=== PATIENT | female | born 1975 | race Caucasian/White ===

== ENCOUNTER 2021-04-19 15:11 | Emergency (ER) | payer OTHER, SELFPAY ==
[2021-04-19 15:13] VITALS: BP 129/91; PULSE 61; RESP 20; TEMP 36.3; O2SAT 99; BMI 41.0
--- NOTE | 2021-04-19 17:21 | HMH.EDUTC ---
[facility] Disposition Clinical Impression: Viral syndrome Disposition: Home, Self-Care Condition on Discharge: Good Instructions: DI for Viral Syndrome, Preventing the Spread of Coronavirus Discharge Instructions Additional Instructions: Drink plenty of fluids. Take tylenol or ibuprofen for pain or fever. Follow up with your regular doctor. GO TO THE ER FOR ANY WORSENING SYMPTOMS Quarantine until you know the results of your covid-19 test. If it is positive, the health department should call you and give you further instructions about your length of Quarantine and other things. Notify your school or workplace of your results and follow their instructions regarding return to work/school. Referrals: Josh Parmar MD [Primary Care Provider] - Time of Disposition: 17:25 Medical Decision Making - Medical Records Medical records reviewed: No: I reviewed the patient's medical records. - Bryan Inquiry Pt receiving controlled substance: No Vital Signs: 04/19/21 15:13 04/19/21 17:27 Temperature 97.4 F L 97.4 F L Temperature Source Oral Pulse Rate 61 Pulse Rate [Left Radial] 61 Respiratory Rate 20 20 Blood Pressure 129/91 H Blood Pressure [Right Arm] 129/91 H Blood Pressure Mean [Right Arm] 103 Blood Pressure Source [Right Arm] Automatic Cuff Blood Pressure Position [Right Arm] Sitting 02 Sat by Pulse Oximetry 99 Oxygen Delivery Method Room Air Room Air Orders (Tests/Meds): ORDERS Category Date Time Status Covid-19 Nasal PCR ([facility]) Routine Lab 04/19/21 17:08 Received [facility] HPI - General Stated complaint: covid test Time Seen by Provider: 04/19/21 17:21 Mode of Arrival: Ambulatory Source of Information: Patient Limitations: No Limitations Description of Symptoms (Recalled from Triage Doc. by RN): runny nose, chills and MAURICIO since last night HEENT Symptoms (Recalled from RN notes): Yes Resp Symptoms (Recalled from RN notes): No Skin Symptoms (Recalled from RN notes): No MS Symptoms (Recalled from RN notes): No Functional Status (Recalled from RN notes): na - History of Present Illness Provider Complaint: She reports that she has a slightly runny nose since yesterday. She denies any fever/chills/body aches. She has not had the covid vaccine. - Related Data Allergies Allergy/AdvReac Type Severity Reaction Status Date / Time NO KNOWN ALLERGIES Allergy Uncoded 08/04/17 15:41 - Worker's Comp Is this a Worker's Comp case?: No [facility] History - Hepatitis A Screen Drug use history?: No High risk sexual behaviors?: No History of sexually transmitted infection?: No Currently employed?: No Childcare worker?: No Do you have indoor plumbing?: Yes Do you have electricity?: Yes Attestation statement:: This patient has been screened for Hepatitis A risk factors. I have reviewed the patient's past medical history: Yes ROS Obtained: Yes All systems reviewed & no additional complaints - Constitutional Constitutional: Reports system reviewed and no additional complaints, except as docu - Eyes Eyes: Reports system reviewed and no additional complaints, except as docu - ENT Ears, Nose, Mouth, and Throat: Reports system reviewed and no additional complaints, except as docu - Cardiovascular Cardiovascular: Reports system reviewed and no additional complaints, except as docu - Respiratory Respiratory: Reports system reviewed and no additional complaints, except as docu - Gastrointestinal Gastrointestingal: Reports: system reviewed and no additional complaints, except as docu Physical Exam - General General appearance: alert, in no apparent distress - Head Head exam: atraumatic, normocephalic, normal inspection - Eye Eye exam: Present: normal appearance, PERRL, EOMI - ENT ENT exam: Present: normal exam, normal oropharynx, mucous membranes moist, TM's normal bilaterally, normal external ear exam - Neck Neck exam: Present: normal inspection, full ROM, tr
[2021-04-19 17:27] VITALS: BP 129/91; PULSE 61; RESP 20; TEMP 36.3; O2SAT 99
== END 2021-04-19 17:28 | disposition home or self-care (01) ==
PROVIDERS: Emergency Provider Nurse Practitioner Family; PCP Family Medicine
DX: U07.1 COVID-19 (principal)
CPT/HCPCS: 99202; G0463; U0003

== ENCOUNTER 2021-04-30 12:09 | Emergency (ER) | payer OTHER, SELFPAY ==
[2021-04-30 12:50] VITALS: BP 131/86; PULSE 88; RESP 18; TEMP 37; O2SAT 95; BMI 41.0
[2021-04-30 13:01] VITALS: BMI 41.0
--- NOTE | 2021-04-30 13:03 | XR_ITS ---
PROCEDURE: XR CHEST 2V CLINICAL HISTORY: COVID +, WORSENING SYMPTOMS COMPARISON: No exams were available for comparison FINDINGS: The cardiomediastinal silhouette and pulmonary vascularity are within normal limits. Pneumonia is present in the superior segment of the right lower lobe. No obvious effusion. No evidence of pneumothorax. Mild lower thoracic curvature convex left. IMPRESSION: Right lower lobe pneumonia Dictated by: Nagi Mederos MD 04/30/2021 13:46 Nagi Mederos MD in [place] 04/30/2021 13:46
[2021-04-30 13:10] LABS: UTC Strep Screen (Rapid) Positive (Negative)
--- NOTE | 2021-04-30 13:56 | HMH.EDUTC ---
[facility] [place] Clinical Impression: Strep throat, COVID-19 Pneumonia Qualifiers: Pneumonia type: due to unspecified organism Laterality: right Lung location: lower lobe of lung Qualified Code(s): J18.9 - Pneumonia, unspecified organism Disposition: Home, Self-Care Condition on Discharge: Good Instructions: Pneumonia-Adult, DI for Strep Throat, DI for COVID-19 (Suspected or Confirmed ), Preventing the Spread of Coronavirus Discharge Instructions Additional Instructions: Drink plenty of fluids. Take tylenol or ibuprofen for pain or fever. Take the medications as directed. Follow up with your regular doctor. GO TO THE ER FOR ANY WORSENING SYMPTOMS Throw your tooth brush away and get a new one. Don't start the oral steroids (dexamethazone) until tomorrow, since you had the steroid shot here today. The cough medication (promethazine dm) will make you drowsy, so don't drive or operate heavy machinery after taking it. Prescriptions: Albuterol Sulfate [Albuterol Sulfate Hfa] 2 puffs IH Q6HP PRN 30 Days #1 each PRN Reason: Shortness Of Breath Transmission Status: Received by [facility] #[id number] Promethazine/Dextromethorphan [Promethazine-Dm Syrup] 5 ml PO Q6HP PRN #240 ml PRN Reason: Cough Transmission Status: Received by [facility] #[id number] Amoxicillin/Potassium Clav [Augmentin 875-125 Tablet] 1 tab PO Q12H 10 Days #20 tab Transmission Status: Received by [facility] #[id number] dexAMETHasone [Decadron] 6 mg PO DAILY 6 Days #6 tab Transmission Status: Received by [facility] #[id number] Referrals: Josh Parmar MD [Primary Care Provider] - Time of Disposition: 14:07 Medical Decision Making - Medical Records Medical records reviewed: No: I reviewed the patient's medical records. - Bryan Inquiry Pt receiving controlled substance: No Vital Signs: 04/30/21 12:50 04/30/21 14:09 Temperature 98.6 F 98.6 F Temperature Source Oral Pulse Rate 88 Pulse Rate [Right Brachial] 88 Respiratory Rate 18 18 Blood Pressure 131/86 Blood Pressure [Right Arm] 131/86 Blood Pressure Mean [Right Arm] 101 Blood Pressure Source [Right Arm] Automatic Cuff Blood Pressure Position [Right Arm] Sitting 02 Sat by Pulse Oximetry 95 Oxygen Delivery Method Room Air - Lab Data Lab Results 04/30/21 13:03: Strep Scn [facility] Positive A Orders (Tests/Meds): ED MEDICATIONS Discontinued Medications Generic Name Dose Route Start Last Admin Trade Name Salome PRN Reason Stop Dose Admin Ceftriaxone Sodium 1 gm 04/30/21 13:49 04/30/21 14:00 Ceftriaxone 1gm Vial IM 04/30/21 13:50 1 gm ONCE ONE Administration Lidocaine HCl 0 ml 04/30/21 13:49 04/30/21 14:01 Lidocaine 1% 5ml Pf Vial IM 04/30/21 13:50 2.5 ml ONCE ONE Administration Methylprednisolone Sodium Succinate 125 mg 04/30/21 13:49 04/30/21 14:01 Methylprednisolone Sod Succ 125mg Vial IM 04/30/21 13:50 125 mg ONCE ONE Administration - Radiology Data #1 Image(s): Chest Image Reviewed: Yes I reviewed the patient's radiology image, Yes I have reviewed radiologist's interpretation Preliminary Findings: Abnormal [facility]PI - General Stated complaint: covid positive and symptoms Time Seen by Provider: 04/30/21 13:00 Mode of Arrival: Ambulatory Source of Information: Patient Limitations: No Limitations Description of Symptoms (Recalled from Triage Doc. by RN): PATIENT REPORTS SHE TESTED POSITIVE FOR COVID ON 04/19 AND STATES HER SYMPTOMS HAVE NOT IMPROVED AND SHE FEELS WORSE. C/O WEAKNESS, SORE THROAT, FEVER AT NIGHT, NAUSEA, SWEATING, RUNNY NOSE, AND PRODUCTIVE COUGH HEENT Symptoms (Recalled from RN notes): Yes Resp Symptoms (Recalled from RN notes): Yes Skin Symptoms (Recalled from RN notes): No MS Symptoms (Recalled from RN notes): No Functional Status (Recalled from RN notes): WNL - History of Present Illness Provider Complaint: She has felt bad for around the
[2021-04-30 14:09] VITALS: BP 131/86; PULSE 88; RESP 18; TEMP 37; O2SAT 95
== END 2021-04-30 14:13 | disposition home or self-care (01) ==
PROVIDERS: Emergency Provider Nurse Practitioner Family; PCP Family Medicine
DX: J02.0 Streptococcal pharyngitis (principal); U07.1 COVID-19; J12.82 Pneumonia due to coronavirus disease 2019
CPT/HCPCS: 71046; 87880; 96372; 99202; G0463

== ENCOUNTER 2021-05-03 10:47 | Emergency (ER) | payer OTHER, SELFPAY ==
[2021-05-03] VITALS (8 sets, daily range): BP systolic 131–178; BP diastolic 82–97; PULSE 79–109; RESP 14–21; TEMP 38.7; O2SAT 88–96; BMI 40.3
--- NOTE | 2021-05-03 11:28 | XR_ITS ---
PROCEDURE: XR CHEST PORTABLE CLINICAL HISTORY: cough COMPARISON: CR XR CHEST 2V from 04/30/2021 FINDINGS: There are low lung volumes. Normal heart size. No evidence of CHF. Consolidation is present in the right lower lung zone consistent with pneumonia probably not significantly changed considering the difference in inspiration. Patchy density however is now present in the left mid to lower lung zone in the right upper lobe consistent with bilateral pneumonia. No acute bony abnormalities. IMPRESSION: Low lung volumes with bilateral pneumonia Dictated by: Nagi Mederos MD 05/03/2021 11:56 Nagi Mederos MD in [place] 05/03/2021 11:56
--- NOTE | 2021-05-03 11:43 | HMH.EDFEV ---
ED Disposition Clinical Impression: Acute respiratory failure with hypoxia, Pneumonia due to COVID-19 virus Disposition: Admitted As Inpatient Condition on Discharge: Serious Referrals: Josh Parmar MD [Primary Care Provider] - - Critical Care Critical Care Time: No Attestation: On 05/03/21, the high probability of a clinically significant, sudden or life threatening deterioration of the following system(s) required my full and direct attention, intervention and personal management. The time I documented below is in addition to time spent performing reported procedures but includes the following listed in this critical care notation. Medical Decision Making - Medical Records Medical records reviewed: Yes: I reviewed the patient's medical records. - Bryan Inquiry Pt receiving controlled substance: No Vital Signs: 05/03/21 10:48 05/03/21 10:59 05/03/21 11:06 Temperature 101.7 F H 101.7 F H Temperature Source Oral Oral Pulse Rate 106 H Pulse Rate [Left Radial] 109 H Respiratory Rate 18 14 Blood Pressure 178/97 H Blood Pressure [Right Arm] 163/91 H Blood Pressure Mean 113 Blood Pressure Mean [Right Arm] 115 Blood Pressure Source [Right Arm] Automatic Cuff Blood Pressure Position [Right Arm] Sitting 02 Sat by Pulse Oximetry 95 88 L 91 L Oxygen Delivery Method Room Air Nasal Cannula Oxygen Flow Rate (LPM) 2 05/03/21 11:27 05/03/21 11:30 Temperature Temperature Source Pulse Rate 106 H 108 H Pulse Rate [Left Radial] Respiratory Rate Blood Pressure 163/91 H 153/87 H Blood Pressure [Right Arm] Blood Pressure Mean Blood Pressure Mean [Right Arm] Blood Pressure Source [Right Arm] Blood Pressure Position [Right Arm] 02 Sat by Pulse Oximetry 96 89 L Oxygen Delivery Method Nasal Cannula Nasal Cannula Oxygen Flow Rate (LPM) 2 2 - Lab Data Lab Results 05/03/21 11:39: Specimen Source Left radial, O2 % 4lpm nc, ABG pH 7.43, ABG pCO2 33.8 L, ABG pO2 62.8 L, ABG HCO3 21.8 L, ABG Total CO2 22.8 L, ABG O2 Saturation 93, ABG Base Excess -2.6 L, Nagi Test Acceptable 05/03/21 11:55: WBC 9.6, RBC 5.13, Hgb 15.8, Hct 49.2 H, MCV 95.9, MCH 30.9, MCHC 32.2, RDW 12.4, Plt Count 272, MPV 8.3, Neut % (Auto) 72.2, Lymph % (Auto) 18.9, [place] % (Auto) 8.5, Eos % (Auto) 0.1, Baso % (Auto) 0.4, Neut # (Auto) 7.0, Lymph # (Auto) 1.8, [place] # (Auto) 0.8, Eos # (Auto) 0.0, Baso # (Auto) 0.0 05/03/21 11:55: Sodium 142, Potassium 4.2, Chloride 106, Carbon Dioxide 26, Anion Gap 14.2, BUN 10, Creatinine 0.60, Estimated Creat Clear 227, Estimated GFR 109, Est GFR ( Amer) 131, Glucose 101 H, Calcium 8.7, Total Bilirubin 0.2, AST 56 H, ALT 53, Alkaline Phosphatase 80, Troponin I < 0.01, NT-Pro-B Natriuret Pep 85.8, Total Protein 6.7, Albumin 3.5, Globulin 3.2, Albumin/Globulin Ratio 1.1, TSH 0.96 Result diagrams: 05/03/21 11:55 05/03/21 11:55 Orders (Tests/Meds): ED MEDICATIONS Discontinued Medications Generic Name Dose Route Start Last Admin Trade Name Samq PRN Reason Stop Dose Admin Dexamethasone Sodium Phosphate 10 mg 05/03/21 11:28 05/03/21 11:44 Dexamethasone 4mg/Ml 5ml Mdv IV 05/03/21 11:29 10 mg ONCE ONE Administration Sodium Chloride 1,000 mls @ 999 mls/hr 05/03/21 11:30 05/03/21 11:44 Sod Chlor 0.9% 1000ml Bag IV 05/03/21 12:30 999 mls/hr .Q1H1M MERCED Administration Ketorolac Tromethamine 30 mg 05/03/21 11:28 05/03/21 11:44 Ketorolac 30mg/Ml Vial IV 05/03/21 11:29 30 mg ONCE ONE Administration ORDERS Category Date Time Status Troponin I Q3H Lab 05/03/21 14:30 Ordered Troponin I Q3H Lab 05/03/21 17:30 Ordered - Radiology Data #1 Image(s): Chest Image Reviewed: Yes I reviewed the patient's radiology results, Yes I reviewed the patient's radiology image, Yes I have reviewed radiologist's interpretation IMPRESSION: Low lung volumes with bilateral pneumonia - Reevaluation(s) Time: 14:00 Reevaluation #1: On r
--- NOTE | 2021-05-03 11:44 | PC.NURSE ---
attempted multi times to get labs, unsuccessful at this time. Called lab for blood draw
[2021-05-03 12:07] LABS: Basophils % 0.4 % (0.1-2.0); Eosinophils % 0.1 % (0.1-12.0); Hematocrit 49.2 % (37.0-47.0); Hemoglobin 15.8 g/dL (12.2-16.2); Lymphocytes # 1.8 K/mm3 (0.7-4.5); Lymphocytes % 18.9 % (10-50); Mean Corpuscular HGB Conc 32.2 g/dL (31.8-35.4); Mean Corpuscular Hemoglobin 30.9 pg (27.0-31.2); Mean Corpuscular Volume 95.9 fl (81-99); Mean Platelet Volume 8.3 fl (7.4-10.4); Monocytes # 0.8 K/mm3 (0.1-1.0); Monocytes % 8.5 % (1.7-9.3); Neutrophils % 72.2 % (37.0-80.0); Platelet Count 272 K/mm3 (142-424); Red Blood Count 5.13 M/mm3 (4.20-5.40); Red Cell Distribution Width 12.4 % (11.5-17.5); White Blood Count 9.6 K/mm3 (4.8-10.8)
[2021-05-03 12:38] LABS: Chloride 106 mmol/L (98-107); Potassium 4.2 mmoL/L (3.5-5.1); Sodium 142 mmol/L (136-145)
[2021-05-03 12:41] LABS: Alanine Aminotransferase 53 U/L (12-78); Albumin Level 3.5 g/dl (3.5-5.0); Albumin/Globulin Ratio 1.1 (1.1-1.8); Alkaline Phosphatase 80 U/L (38-126); Anion Gap 14.2 mEq/L (5-15); Aspartate Amino Transferase 56 U/L (14-36); Bilirubin,Total 0.2 mg/dl (0.2-1.3); Blood Urea Nitrogen 10 mg/dl (7-17); Calcium 8.7 mg/dl (8.4-10.2); Carbon Dioxide 26 mmol/L (22.0-30.0); Creatinine Clearance Estimated 227 mL/min (50-200); Estimated Glomerular Filt Rate 109 ml/min (>60); GFR (African American) 131 ML/MIN (>60); Globulin 3.2 g/dL (1.3-3.2); Glucose 101 mg/dl (74-100); Total Protein,Serum 6.7 g/dl (6.3-8.2)
[2021-05-03 12:53] LABS: NT Pro Brain Natriuretic Pep. 85.8 pg/mL (0-125)
[2021-05-03 12:58] LABS: Troponin I < 0.01 ng/ml (0.00-0.034)
[2021-05-03 13:15] LABS: Thyroid Stimulating Hormone 0.96 uIU/mL (0.465-4.68)
[2021-05-03 13:27] LABS: ABG Base Excess -2.6 mmol/L (-2.4-2.3); ABG HCO3 21.8 mmhg (22.0-26.0); ABG Oxygen Saturation 93 % (90-100); ABG PCO2 33.8 mmhg (35.0-45.0); ABG PH 7.43 mmol/L (7.35-7.45); ABG PO2 62.8 mmhg (80-100); ABG TCO2 22.8 mmhg (23-27)
[2021-05-03 13:29] LABS: Allen's Test Acceptable; Oxygen 4LPM NC %; Source Left Radial
--- NOTE | 2021-05-03 13:59 | PC.NURSE ---
dr White speaking with Dr Jamil
--- NOTE | 2021-05-03 14:05 | PC.NURSE ---
1408 BED ASSIGNMENT REQUESTED, ROOM 210. ALL STAFF NOTIFIED
--- NOTE | 2021-05-03 14:14 | PC.NURSE ---
contacted care management r/t home oxygen set up for pt per ER MD request
--- NOTE | 2021-05-03 14:17 | PC.NURSE ---
notified Dr. Jamil per ER request that we are getting pt set up on home oxygen versus admitting pt, Dr Jamil states is is in agreeance with this plan
--- NOTE | 2021-05-03 14:25 | SW/DCPLANNER ---
Addendum entered by Gertrude White 05/03/21 14:30: Anjana Ulrich has stated that portable/home O2 will be delivered to ED. Original Note: Patient information/order has been faxed to [facility] for home O2/portable tank. I will follow up with Serg once patient information is reviewed.
== END 2021-05-03 15:36 | disposition home or self-care (01) ==
PROVIDERS: Emergency Provider Emergency Medicine; PCP Family Medicine
DX: J96.01 Acute respiratory failure with hypoxia (principal); U07.1 COVID-19; J12.82 Pneumonia due to coronavirus disease 2019
CPT/HCPCS: 36415; 71045; 80053; 82803; 83880; 84443; 84484; 85025; 96365; 96375; 99282

== ENCOUNTER 2025-04-10 21:51 | Emergency (ER) | payer OTHER, SELFPAY ==
--- NOTE | 2025-04-10 21:58 | ED_ITS ---
Discharge Plan Disposition Patient Disposition: Home, Self-Care Condition: Good Prescriptions Prescriptions: No Action methylprednisolone [Medrol (Jaime)] 4 mg tablets,dose pack See Rx Instructions PO PER PKG DIR Qty: 21 0RF Rx Instructions: PO PER PKG DIR for 6 days azithromycin 250 mg tablet See Rx Instructions PO .COMPLEX Qty: 6 0RF Rx Instructions: For 250 mg dose pack: take 500 mg today (day 1), then 250 mg for 4 days (days 2-5) PO Referrals Follow up/Referrals: Provider,Referral, MD [Primary Care Provider, Medical] - See instructions Activity Restrictions/Add. Instructions Additional Instructions/Restrictions: Follow-up with your primary care provider. You do have some incidental findings on your CT scan including a renal cyst and some areas in your liver that may need serial imaging to make sure these do not progress. If you have any acute or worsening symptoms please return to the emergency department otherwise you can take Tylenol and Motrin as needed. Clinical Impressions Clinical Impression: Abdominal pain Instructions Patient Instructions: DI for Urinary Tract Infection (UTI), DI for Urinary Tract Infection in Children Print Language Print Language: Italian Discharge ED Provider: Ludmila Watson General Adult HPI General Chief complaint: Urogenital-Female Stated complaint: Abdominal Pain with nausea Time Seen by Provider: 04/10/25 21:58 History of Present Illness HPI narrative: Patient is a 49-year-old female who presented to the emergency department with abdominal pain. On arrival patient is reporting some middle abdominal and right lower quadrant pain. Patient reports nausea but no vomiting. Patient denies any fevers. Patient denies any diarrhea. Patient denies any blood in her stool. Patient denies any upper respiratory symptoms. Patient does report some chest pain but no shortness of breath. Related Data Previous Rx's ?Medication ?Instructions ?Recorded azithromycin 250 mg tablet See Rx Instructions PO .COM PLEX #6 01/30/25 tabs methylprednisolone 4 mg tablets in See Rx Instructions PO PER PKG DIR 01/30/25 a dose pack (Medrol (Jaime)) #21 tabs Allergies Allergy/AdvReac Type Severity Reaction Status Date / Time No Known Allergies Allergy Verified 01/30/25 14:23 [facility] Disclaimer: The information contained in this section may have been updated after the patient was seen, as this information can be updated by other users. Medical History Acute respiratory failure with hypoxia Pneumonia due to COVID-19 virus Surgical History No pertinent past surgical history Family History Family/Other No significant family history Social History Smoking Status: Never smoker alcohol intake: never current occupational status: employed Travel in the last 8 weeks?: None Have you lived/traveled outside [place] in past 30 days?: No Contact w/someone who lives/traveled outside US past 30 days?: No Exposure to someone with infectious disease in past 14 days?: No Do you have a fever (greater than 100.4 F or 38 C)?: No Have you tested positive for COVID-19?: No Exposed to someone with COVID-19 in past 14 days?: No Do you have a sore throat?: No Do you have a cough?: No Do you have any weakness?: No Do you have any diarrhea?: No Are you experiencing any unusual bleeding?: No Do you have any muscle aches/pain?: No Do you have any abdominal pain?: No Are you experiencing loss of taste or smell?: No Other Medical History Have you received the Flu Vaccine for this season: No Have you received the Pneumonia Vaccine: No ROS Obtained: Yes All systems reviewed & no additional complaints except as documented and Yes Systems reviewed as appropriate & no additional complaints except as documented Physical Exam General General appearance: alert and in no apparent distress Head Head exam: atraumatic, normocephalic and normal inspection Eye Eye exam: Present normal appearance, PERRL and EOMI; Absent scleral icterus ENT ENT exam: Present normal exam and normal external ear exam Neck Neck exam: Present normal inspection and full ROM Chest Chest inspection: Present normal inspection and symmetric chest wall rise Respiratory Respiratory exam: Present normal lung sounds bilaterally; Absent respiratory distress or wheezes Cardiovascular Cardiovascular exam: Present regular rate, normal rhythm and normal heart sounds Abdominal Exam Abdominal exam: Present soft, distention and tenderness (mild diffuse abdominal tenderness); Absent guarding or rebound Extremities Exam Extremities exam: Present normal inspection and full ROM Back Exam Back exam: Present normal inspection and full ROM Neurological Exam Neurological exam: Present alert and oriented X3 Psychiatric Psychiatric exam: Present normal affect and normal mood Skin Skin exam: Present warm and dry Medical Decision Making Medical Records Medical records reviewed: Yes I reviewed the patient's medical records. Screening: Per USPSTF and CDC recommendations, given the prevalence of disease in our region, it is our hospital?s policy to screen for HIV and viral Hepatitis for all patients aged 18 and over and those with ongoing risk factors. Bryan Inquiry Pt receiving controlled substance: No Vital Signs: 04/10/25 22:02 04/10/25 23:44 04/11/25 00:20 Temperature 97.6 F 98.4 F Temperature Source Oral Pulse Rate 53 L 87 Pulse Rate [Right] 66 Respiratory Rate 16 16 18 Blood Pressure 143/67 H 139/86 Blood Pressure [Right Arm] 199/100 H Blood Pressure Mean [Right Arm] 133 02 Sat by Pulse Oximetry 99 98 Oxygen Delivery Method Room Air Room Air Room Air Lab Data Lab results reviewed: Yes I reviewed the patient's lab results. Lab Results 04/10/25 21:58: Urine Color Yellow, Urine Appearance Clear, Urine pH 6.0, Ur Specific [place] 1.020, Urine Protein Negative, Urine Glucose (UA) Negative, Urine Ketones Negative, Urine Blood Trace-i, Urine Nitrate Negative, Urine Bilirubin Negative, Urine Urobilinogen 0.2, Ur Leukocyte Esterase Trace, Urine RBC Occasional, Urine WBC 3-5, Ur Squamous Epith Cells 3-5, Urine Bacteria None 04/10/25 22:02: WBC 12.0 H, RBC 4.93, Hgb 14.9, Hct 45.3, MCV 91.9, MCH 30.2, MCHC 32.9, RDW 12.4, Plt Count 314, MPV 10.9 H, Neut % (Auto) 41.0, Lymph % (Auto) 45.3, [place] % (Auto) 8.5, Eos % (Auto) 4.1, Baso % (Auto) 0.9, Neut # (Auto) 4.9, Lymph # (Auto) 5.4 H, [place] # (Auto) 1.0, Eos # (Auto) 0.5 H, Baso # (Auto) 0.1, Total Counted 100, Neutrophils % (Manual) 42, Lymphocytes % (Manual) 51 H, Monocytes % (Manual) 6, Eosinophils % (Manual) 1, Platelet Estimate Normal, Stomatocytes 1+, PT 10.4, INR 0.93, APTT 28.7, Sodium 141, Potassium 4.6, Chloride 109 H, Carbon Dioxide 23, Anion Gap 13.6, BUN 14, Creatinine 0.70, Estimated Creat Clear 99, Estimated GFR 89, Est GFR ( Amer) 108, Glucose 105 H, Calcium 9.2, Total Bilirubin 0.3, AST 31, ALT 19, Alkaline Phosphatase 77, Troponin I < 0.01, C-Reactive Protein 6.8 H, Total Protein 7.4, Albumin 4.2, Globulin 3.2, Albumin/Globulin Ratio 1.3, Lipase 97, HCV Ab ANUPAM w/Rflx PCR Qn Negative, HIV Ag/Ab Combo Qual Negative 04/10/25 22:02 04/10/25 22:02 Orders (Tests/Meds): ED MEDICATIONS Discontinued Medications Generic Name Dose Route Start Last Admin Trade Name Freq PRN Reason Stop Dose Admin Iopamidol 75 ml 04/10/25 23:47 04/10/25 23:48 Iopamidol-370 (76%);100ml Bottle IV 04/10/25 23:48 75 ml ONCE ONE Administration Ondansetron HCl 4 mg 04/10/25 22:25 04/10/25 22:38 Ondansetron 4mg/2ml Vial IV 04/10/25 22:26 4 mg ONCE ONE Administration Sodium Chloride 10 ml 04/10/25 22:13 Sodium Chloride 0.9% 10ml Flush Syringe IV 05/10/25 22:12 NEEDED PRN Maintain IV Site Sodium Chloride 10 ml 04/10/25 23:47 04/10/25 23:48 Sodium Chloride 0.9% 10ml Syr (Rad Only) IV 05/10/25 23:46 10 ml NEEDED PRN Administration Maintain IV Site ORDERS Category Date Time Status CT abdomen pelvis w con Stat Cat Scan 04/10/25 22:25 Completed Activated Partial Thrombo Time Stat Lab 04/10/25 22:02 Completed C-Reactive Protein Stat Lab 04/10/25 22:02 Completed Complete Blood Count Auto Diff Stat Lab 04/10/25 22:02 Completed Comprehensive Metabolic Panel Stat Lab 04/10/25 22:02 Completed HIV Combo Stat Lab 04/10/25 22:02 Completed Hepatitis C Ab Qual. W/ RFX Stat Lab 04/10/25 22:02 Completed Lipase Stat Lab 04/10/25 22:02 Completed Prothrombin Time INR Stat Lab 04/10/25 22:02 Completed Troponin I Stat Lab 04/10/25 22:02 Completed Urinalysis and Microscopic Stat Lab 04/10/25 21:58 Completed Urine Culture Stat Micro 04/10/25 22:16 Completed Medical Decision Narrative: Patient is an otherwise healthy 49-year-old female who presented to the emergency department with diffuse abdominal pain. On arrival, patient was hemodynamically stable with unremarkable vital signs. Differential includes but not limited to: ACS/NH, pancreatitis, intra-abdominal process, appendicitis, constipation, urinary tract infection, amongst others. Patient's labs were reviewed and interpreted by myself: CBC showed mild leukocytosis, hemoglobin stable. CMP unremarkable. Lipase normal. CRP mildly elevated. Initial troponin less than 0.01. UA showed no evidence of infection. CT scan was reviewed and interpreted by myself and showed no acute intra- abdominal pathology. At this time, patient's workup was otherwise negative. Patient was appropriate for discharge home. Return precautions were discussed. Critical Care Critical Care Time Critical Care Time: No
[2025-04-10 22:02] VITALS: BP 199/100; PULSE 66; RESP 16; TEMP 36.4; O2SAT 99; BMI 43.3
--- OUTSIDE RECORDS SUMMARY | 2025-04-10 22:11 | XMS_ITS | Clinical Summary ---
Author Organization [facility] [place] [address] Care Team Providers Care Academic Services Professional Name Role Phone Unavailable Primary Care Provider Unavailabl e Allergies No known active allergies Active Problems Problem Noted Date Diagnosed Date Menorrhagia Surgical History Surgery Date Site/Laterality Comments TONSILLECTOMY 2000 SECTION 1999 SPLENECTOMY 1993 Social History Tobacco Use Types Packs/Day Years Used Date Smoking Tobacco: Never Alcohol Use Standard Drinks/Week Comments No 0 (1 standard drink = 0.6 oz pur e alcohol) Comments Unknown Sex and Gender Information Value Date Recorded Sex Assigned at Not on file Legal Sex Female 2:50 PM EDT Gender Identity Not on file Sexual Orientation Not on file Obstetrics History Plan of Treatment Health Maintenance Due Date Last Done Comments Annual Wellness Exam 12/08/1979 DTaP/TDaP/Td (1 - Tdap) 12/08/1995 Hepatitis B Vaccine (1 of 3 - 19+ 3-dose series) 12/08/1995 Cologuard 2021 Colon Cancer Screening 2021 Colonoscopy 2021 FIT 2021 Sigmoidoscopy 2021 Virtual Colonography 2021 COVID-19 Vaccine ( - 2023-2 5 season) 2024 Influenza Vaccine (#1) 2025 Meningococcal B Vaccine Aged Out No l onger eligible based on patient's age to complete this topic Pneumococcal Vaccine 0-49 Aged Out No longer eligible based on patient's age to complete this topic
--- NOTE | 2025-04-10 22:25 | CT_ITS ---
PROCEDURE INFORMATION: Exam: CT Abdomen And Pelvis With Contrast Exam date and time: 04/10/2025 11:35 PM Age: 49 years old Clinical indication: Abdominal pain; Additional info: Rlq abdominal tenderness TECHNIQUE: Imaging protocol: Computed tomography of the abdomen and pelvis with contrast. Radiation optimization: All CT scans at this facility use at least one of these dose optimization techniques: automated exposure control; mA and/or kV adjustment per patient size (includes targeted exams where dose is matched to clinical indication); or iterative reconstruction. Contrast material: ISOVUE; Contrast volume: 75 ml; Contrast route: IV; COMPARISON: CR XR CHEST PORTABLE 05/03/2021 11:49 AM FINDINGS: Liver: Normal. No mass. Gallbladder and biliary ducts: Normal. No calcified stones. No ductal dilation. Pancreas: Normal. No ductal dilation. Spleen: Splenectomy. Adrenal glands: Normal. No mass. Kidneys and ureters: 6.5 cm simple appearing right renal cyst. No hydronephrosis or hydroureter. Stomach and bowel: Unremarkable. No obstruction. No mucosal thickening. Appendix: Normal appendix. Intraperitoneal space: Unremarkable. No free air. No significant fluid collection. Vasculature: Unremarkable. No abdominal aortic aneurysm. Lymph nodes: Unremarkable. No enlarged lymph nodes. Urinary bladder: Unremarkable as visualized. Reproductive: Unremarkable as visualized. Bones/joints: Unremarkable. No acute fracture. Soft tissues: Unremarkable. IMPRESSION: No acute findings. COMMENTS: Consistent with the [employer]'s Incidental Findings Committee white paper (J Am Pau Radiol 2018): Any incidental renal lesion less than 1 cm or classified as too small to characterize, or any incidental cystic renal lesion characterized as simple-appearing, is likely benign. No follow-up imaging is recommended for these lesions per consensus recommendations based on imaging criteria.
[2025-04-10 22:35] LABS: Albumin Level 4.2 g/dl (3.5-5.0); Chloride 109 mmol/L (98-107); Sodium 141 mmol/L (136-145)
[2025-04-10 22:36] LABS: Potassium 4.6 mmoL/L (3.5-5.1)
[2025-04-10 22:38] LABS: Microscopic, Urine URINE MICROSCOPIC (MICROSCOPIC)
[2025-04-10 22:38] LABS: Alanine Aminotransferase 19 U/L (12-78); Albumin/Globulin Ratio 1.3 (1.1-1.8); Alkaline Phosphatase 77 U/L (38-126); Anion Gap 13.6 mEq/L (5-15); Aspartate Amino Transferase 31 U/L (14-36); Bilirubin,Total 0.3 mg/dl (0.2-1.3); Blood Urea Nitrogen 14 mg/dl (7-17); Carbon Dioxide 23 mmol/L (22.0-30.0); Creatinine Clearance Estimated 99 mL/min (50-200); Creatinine,Serum 0.70 mg/dl (0.52-1.04); Estimated Glomerular Filt Rate 89 ml/min (>60); GFR (African American) 108 ML/MIN (>60); Globulin 3.2 g/dL (1.3-3.2); Total Protein,Serum 7.4 g/dl (6.3-8.2)
[2025-04-10] MEDS: ONDANSETRON 4MG/2ML VIAL 4 MG IV (22:38)
[2025-04-10 22:39] LABS: Calcium 9.2 mg/dl (8.4-10.2); Glucose 105 mg/dl (74-100)
[2025-04-10 22:40] LABS: Bilirubin,Urine Negative (Negative); Color,Urine YELLOW (Yellow); Glucose,Urine (UA) Negative (Negative); Ketones,Urine Negative (Negative); Leukocyte Esterase,Urine TRACE (Negative); PH,Urine 6.0 (5.0-8.5); Protein,Urine Negative (Negative); Specific Gravity, Urine 1.020 (1.005-1.030); Urobilinogen,Urine 0.2 EU/dl (0.2)
[2025-04-10 22:53] LABS: RBC,Urine Occasional #/hpf (0-3)
[2025-04-10 23:07] LABS: Hematocrit 45.3 % (37.0-47.0); Hemoglobin 14.9 g/dL (12.2-16.2); Immature Granulocytes % 0.2 %; Mean Corpuscular HGB Conc 32.9 g/dL (31.8-35.4); Mean Corpuscular Hemoglobin 30.2 pg (27.0-31.2); Mean Corpuscular Volume 91.9 fl (81-99); Nucleated Red Blood Cells % 0 %; Platelet Count 314 K/mm3 (142-424); Red Blood Count 4.93 M/mm3 (4.20-5.40); Red Cell Distribution Width-SD 41.6 fL; White Blood Count 12.0 K/mm3 (4.8-10.8)
[2025-04-10 23:14] LABS: Activated Partial Thrombo Time 28.7 seconds (22.8-30.6); INR 0.93 (0.9-1.1); Prothrombin Time 10.4 seconds (10.1-12.5)
[2025-04-10 23:33] LABS: Hepatitis C Ab Qual. W/ RFX NEGATIVE (Negative)
[2025-04-10 23:34] LABS: Lipase 97 U/L (23-300)
[2025-04-10 23:40] LABS: C-Reactive Protein 6.8 mg/L (0-4)
[2025-04-10 23:44] VITALS: BP 143/67; PULSE 53; RESP 16; O2SAT 98
[2025-04-10] MEDS: SODIUM CHLORIDE 0.9% 10ML SYR (RAD ONLY) 10 ML IV (23:48)
[2025-04-10] MEDS: IOPAMIDOL-370 (76%);100ML BOTTLE 75 ML IV (23:48)
[2025-04-11 00:03] LABS: Troponin I < 0.01 ng/ml (0.00-0.034)
[2025-04-11 00:18] LABS: Total Cells Counted 100
[2025-04-11 00:19] LABS: Stomatocytes 1+
[2025-04-11 00:20] VITALS: BP 139/86; PULSE 87; RESP 18; TEMP 36.9; O2SAT 100
--- NOTE | 2025-04-13 08:36 | PC.NURSE ---
Urine culture results reviewed by Dr. Avendano, no new orders received at this time.
== END 2025-04-11 00:20 | disposition home or self-care (01) ==
PROVIDERS: Emergency Provider Student in an Organized Health Care Education/Training Program
DX: R10.9 Unspecified abdominal pain (principal)
CPT/HCPCS: 74177; 80053; 81001; 83690; 84484; 85007; 85025; 85027; 85610; 85730; 86140; 86803; 87086; 87389; 96374; 99284; J2405; Q9967